=== PATIENT | female | born 1990 | race African-American/Black ===

== ENCOUNTER 2016-06-19 14:19 | Emergency (ER) | payer BC ==
[~2016-06-19] VITALS: Ht 157.5 cm; Wt 68.0 kg
[~2016-06-19 14:19] MED LIST: FLAGYL500 MG PO; IBUPROFEN 600600 M1 PO; NOHOMEMEDICATIONS; NORCO 5-325 TA1 EACH PO; ONDANSETRON HCL4 M2 PO; PREDNISONE50 MG PO; TYLENOL COLD &1 EACH PO
[2016-06-19] MEDS ORDERED: PREDNISONE 20 M20 MG PO (16:04)
[2016-06-19] MEDS ORDERED: VENTOLIN HFA 1818 GM INH (16:04)
[2016-06-19] MEDS ORDERED: ACETAMINOPHEN-1 EAC1 PO (16:04)
[2016-06-19 16:20] VITALS: BP 110/74
== END 2016-06-19 16:50 | disposition home or self-care (01) ==
LOC: ER 14:19
DX: J45.909 Unspecified asthma, uncomplicated (principal); Z87.891 Personal history of nicotine dependence

== ENCOUNTER 2018-10-12 08:15 | Emergency (ER) | payer BC ==
[~2018-10-12] VITALS: Ht 160 cm; Wt 77.1 kg
[~2018-10-12 08:15] MED LIST changes: +ACETAMINOPHEN-1 EAC1 PO; +PREDNISONE 20 M20 MG PO; +VENTOLIN HFA 1818 GM INH
[2018-10-12] MEDS ORDERED: ASMANEX220 MC2 INH (08:42)
[2018-10-12 09:42] VITALS: BP 116/72
== END 2018-10-12 09:43 | disposition home or self-care (01) ==
LOC: ER 08:15
DX: S93.601A Unspecified sprain of right foot, initial encounter (principal); Z98.51 Tubal ligation status; Z87.891 Personal history of nicotine dependence; W10.8XXA Fall (on) (from) other stairs and steps, initial encounter; Y93.89 Activity, other specified; Y92.89 Other specified places as the place of occurrence of the external cause; Y99.8 Other external cause status